=== PATIENT | male | born 1995 | race African-American/Black ===

== ENCOUNTER 2018-01-18 03:42 | Emergency (ER) | payer SELFPAY ==
[2018-01-18 03:44] VITALS: BP 154/78; PULSE 112; RESP 18; TEMP 36.8; O2SAT 97; BMI 28.7
--- NOTE | 2018-01-18 03:56 | ED.DCSUM_ITS ---
- ER Visit Summary Date of Service: 01/18/18 Chief Complaint: Bumps on right side of lip History of Present Illness: The patient is a 22 M who noted a sore area to the inner portion of his upper lip yesterday afternoon. The area is slightly enlarging in size. He denies dental pain. When questioned he does state that he tends to chew on his lip. Physical Examination: Vital signs reveal blood pressure 154/78, temperature 98.2 , heart rate 112, respiratory rate 18, pulse ox 97% on room air. Patient sitting upright in bed no acute distress. He is nontoxic appearing. Head neck examination reveals no obvious facial edema or erythema. Intraoral examination was a 2 cm long area of induration and tenderness just on the inner surface of the right upper lip. There is no dental tenderness. No gum edema. Heart is regular rate and rhythm without murmur. Lung sounds are clear. Abdomen is soft nontender. Test Results: [] Emergency Department Course and Treatment: I believe the patient has a indurated area from chewing on his lip. I am concerned he may be starting to get this area infected. He will be covered with clindamycin, first dose given here in the emergency room. Treatment Plan: [] Disposition: Discharge Impression: Skin infection right upper lip This note was generated with [employer] dictation software. It may contain incorrect words, spelling, and punctuation that were not noted in review of the chart prior to signing ED Disposition - Plan for ED Patient: Chief Complaint: Other, Pain/Inj Referrals: Anish Schmid MD [Primary Care Provider] -
--- NOTE | 2018-01-18 03:56 | ED.DEP ---
ED Disposition - Plan for ED Patient: Disposition: Home or Assisted Living Chief Complaint: Other, Pain/Inj Prescriptions: Clindamycin [Cleocin] 300 mg PO 4X/DAY #80 capsule Referrals: Anish Schmid MD [Primary Care Provider] - Additional Instructions: You have a localized area of skin irritation that is starting to become infected. You have been given antibiotics to treat this. You can also use over the counter lip balm to treat cold sores to help heal this area.
[2018-01-18] MEDS: Clindamycin HCl 150 MG Capsule 300 MG PO (04:15)
[2018-01-18 04:16] VITALS: RESP 18
== END 2018-01-18 04:17 | disposition home or self-care (01) ==
PROVIDERS: Emergency Provider Emergency Medicine; Family Provider Pediatrics; PCP Pediatrics
DX: L08.89 Other specified local infections of the skin and subcutaneous tissue (principal); Z72.0 Tobacco use
CPT/HCPCS: 99283

== ENCOUNTER 2018-12-03 03:23 | Emergency (ER) | payer SELFPAY ==
[2018-12-03 03:23] VITALS: BP 145/86; PULSE 61; RESP 16; TEMP 37; O2SAT 100; BMI 26.2
--- NOTE | 2018-12-03 03:26 | ED.DCSUM_ITS ---
- ER Visit Summary Date of Service: 12/03/18 Chief Complaint: Abdominal pain, nausea, vomiting, diarrhea History of Present Illness: The patient is a 23 M presents to the emergency department nausea, vomiting, diarrhea. Patient states symptoms began Saturday night. He states he had a sharp, stabbing pain in his midepigastric area. Since then, he had multiple episodes of emesis. He is also had loose watery diarrhea. He does not think he had fever. Patient is otherwise healthy. He has no history of abdominal surgery. He denies chest pain or dyspnea. He is tried Pepto-Bismol with little improvement. He is on no other daily medications. He denies any recent sick contacts. Physical Examination: Vital signs reviewed General: Well-nourished, well-developed Head: Normocephalic, atraumatic Eyes: Pupils equal and reactive, extraocular muscles intact Neck, supple, no lymphadenopathy Heart: Regular rate and rhythm Respiratory: No distress, clear bilaterally Abdomen: Soft, mildly tender in the midepigastric area without rebound or guarding, nondistended, no peritoneal signs Back: Nontender Extremities: Nontender, no edema, no cords Skin: Normal color no rash Neuro: Alert and oriented, no focal or lateralizing deficits Test Results: [] Emergency Department Course and Treatment: The patient presents with nausea, vomiting, diarrhea. He did have mild pain in his midepigastric area. There is no rebound or guarding. He had no blood in the emesis. IV was established. Patient was given fluids, Toradol, and Zofran. His nausea mildly improved but then returned. Screening labs are relatively unremarkable except for mild renal insufficiency. I do feel that this is likely prerenal given the patient's amount of vomiting. He was given a total 2 L of fluids. With IV Phenergan, his symptoms have resolved. He is now resting comfortably. At this time as he is hydrated and tolerating oral fluids I do feel that he is safe for outpatient therapy. He was counseled on concerning symptoms and reasons to return. Treatment Plan: [] Disposition: Discharge Impression: 1. Gastroenteritis This note was generated with [employer] dictation software. It may contain incorrect words, spelling, and punctuation that were not noted in review of the chart prior to signing ED Disposition - Plan for ED Patient: Instructions: ED Nausea Vomiting Prescriptions: Ondansetron [Zofran Odt] 4 mg PO Q8H PRN PRN #10 tab PRN Reason: Nausea Referrals: Anish Schmid MD [Primary Care Provider] -
[2018-12-03] MEDS: Ondansetron 4 MG/2 ML Vial IV (03:32)
[2018-12-03] MEDS: 0.9% Normal Saline 1,000 ML 1000 ML IV (03:32)
[2018-12-03] MEDS: Ketorolac 15 MG/ML Vial IV (03:32)
[2018-12-03 04:03] LABS: Absolute Lymphocyte Count 0.75 X10^3/ul (0.83-4.51); Absolute Neutrophil Count 5.2 X10^3/uL (2.0-7.7); Basophil# 0.01 X10^3/uL; Basophil% 0.2 % (0-1); Hematocrit 47.8 % (40-54); Hemoglobin 16.4 g/dl (13.0-16.5); Lymphocyte # 0.75 X10^3/ul (4.0); Lymphocyte % 11.7 % (19-41); Mean Corp Hgb Conc 34.3 g/gl (32-36); Mean Corpuscular Hgb 31.8 pg (27.0-32.0); Mean Corpuscular Volume 92.6 fL (80-94); Mean Platelet Vol. 10.8 fl (6.2-12.0); Monocyte# 0.45 X10^3/uL; Neutrophil # 5.18 X10^3/uL (2.7-7.7); Neutrophil % 80.9 % (47-70); Platelet Count 179 K/mm3 (150-450); RBC Distribution Width CV 12.1 % (11.6-14.6); RBC Distribution Width SD 40.7 fl (35.1-43.9); Red Blood Count 5.16 M/mm3 (4.6-6.2); White Blood Count 6.4 K/mm3 (4.4-11.0)
[2018-12-03 04:12] LABS: POSITIVE COUNT NO; POSITIVE DIFFERENTIAL NO; POSITIVE MORPHOLOGY NO
[2018-12-03 04:17] LABS: ALB/GLOB Ratio 1.3 RATIO (0.9-2.4); AST(SGOT) 16 U/L (15-37); Alanine Aminotransfer ALT/SGPT 19 U/L (16-61); Albumin, Serum 4.5 g/dL (3.2-5.0); Alkaline Phosphatase 49 U/L (45-117); Anion Gap 12 (5-15); BUN 13 mg/dL (7-18); BUN/Creat Ratio 8.8 RATIO (10-20); Calcium,Total 9.1 mg/dL (8.5-10.1); Chloride 105 mmol/L (98-107); Creatinine, Serum 1.47 mg/dL (0.70-1.30); EST Glomerular Filtration Rate 63 mL/min (>60); Est Glom Filt Rate - Afr Amer 77 mL/min (>60); Estimated Creatinine Clearance 81.39 ml/min; Globulin 3.4 g/dL (2.2-4.2); Glucose 112 mg/dL (74-106); Lipase 110 U/L (73-393); Potassium 3.2 mmol/L (3.5-5.1); Protein, Total 7.9 g/dL (6.4-8.2); Sodium Level 142 mmol/L (136-145)
[2018-12-03] MEDS: 0.9% Normal Saline 1,000 ML 999 ML IV (04:23)
[2018-12-03] MEDS: proMETHazine 25 MG/ML Syringe 12.5 MG IV (04:25)
[2018-12-03] MEDS: Ondansetron ODT 4 MG Tablet PO (05:16)
[2018-12-03 05:17] VITALS: BP 151/71; PULSE 74; RESP 16; O2SAT 100
== END 2018-12-03 05:21 | disposition home or self-care (01) ==
PROVIDERS: Emergency Provider Emergency Medicine; Family Provider Pediatrics; PCP Pediatrics
DX: K52.9 Noninfective gastroenteritis and colitis, unspecified (principal); N28.9 Disorder of kidney and ureter, unspecified
CPT/HCPCS: 80053; 83690; 85025; 96361; 96374; 96375; 99283; J7030; A4216; J2405

== ENCOUNTER 2018-12-08 05:36 | Emergency (ER) | payer SELFPAY ==
[2018-12-08 05:36] VITALS: BP 141/80; PULSE 65; RESP 15; TEMP 36.8; O2SAT 100; BMI 25.8
--- NOTE | 2018-12-08 05:48 | CT_ITS ---
STUDY: CT ABDOMEN AND PELVIS WITH CONTRAST REASON FOR EXAM: Male, 23 years old. Abdominal pain. Nausea, vomiting, and diarrhea for one week. History of asthma. RADIATION DOSAGE (If Supplied By Facility): CTDIvol = ( 10.51 ) mGy, DLP = ( 525.69 ) mGycm TECHNIQUE: Transaxial images were obtained from the dome of the diaphragm to the symphysis pubis without oral contrast. Isovue 300 100cc IV was administered. Sagittal and coronal images were reconstructed. Individualized dose optimization techniques were used for this CT. COMPARISON: None. FINDINGS: The visualized lung bases are unremarkable. The visualized portions of the heart are within normal limits. Normal liver. Normal gallbladder and extrahepatic biliary system. Normal spleen. Normal pancreas. Normal bilateral adrenal glands. Normal right kidney. Normal left kidney. Normal visualized stomach. Normal small intestine. Normal colon. The appendix is visualized on axial images 62-69 and it appears normal.. Normal abdominal aorta. Normal inferior vena cava. Normal retroperitoneum. Normal urinary bladder. Normal abdominal wall. Normal osseous structures. CT/Abdomen/Pelvis W IV Cont ONLY IMPRESSION: Normal enhanced CT of the abdomen and pelvis. Electronically Signed: Jordon Victor MD at 7:39 EST , Service support ,
[2018-12-08] MEDS: Morphine 4 MG/ML Syringe IV (05:55)
[2018-12-08] MEDS: 0.9% Normal Saline 1,000 ML 1000 ML IV (05:56)
[2018-12-08] MEDS: Ondansetron 4 MG/2 ML Vial IV (05:56)
[2018-12-08 06:21] LABS: Absolute Lymphocyte Count 1.22 X10^3/ul (0.83-4.51); Absolute Neutrophil Count 2.6 X10^3/uL (2.0-7.7); Basophil# 0.01 X10^3/uL; Basophil% 0.2 % (0-1); Eosinophil# 0.05 X10^3/uL; Eosinophils% 1.1 % (0-5); Hematocrit 45.6 % (40-54); Hemoglobin 15.7 g/dl (13.0-16.5); Lymphocyte # 1.22 X10^3/ul (4.0); Lymphocyte % 26.3 % (19-41); Mean Corp Hgb Conc 34.4 g/gl (32-36); Mean Corpuscular Hgb 31.6 pg (27.0-32.0); Mean Corpuscular Volume 91.8 fL (80-94); Monocyte# 0.76 X10^3/uL; Monocyte% 16.4 % (0-10); Neutrophil # 2.59 X10^3/uL (2.7-7.7); Platelet Count 153 K/mm3 (150-450); RBC Distribution Width CV 11.9 % (11.6-14.6); RBC Distribution Width SD 39.8 fl (35.1-43.9); Red Blood Count 4.97 M/mm3 (4.6-6.2); White Blood Count 4.6 K/mm3 (4.4-11.0)
[2018-12-08 06:22] LABS: POSITIVE COUNT NO; POSITIVE DIFFERENTIAL NO; POSITIVE MORPHOLOGY NO
[2018-12-08 06:39] LABS: ALB/GLOB Ratio 1.2 RATIO (0.9-2.4); AST(SGOT) 10 U/L (15-37); Alanine Aminotransfer ALT/SGPT 16 U/L (16-61); Albumin, Serum 4.1 g/dL (3.2-5.0); Alkaline Phosphatase 39 U/L (45-117); Anion Gap 11 (5-15); BUN 10 mg/dL (7-18); BUN/Creat Ratio 7.5 RATIO (10-20); Calcium,Total 8.8 mg/dL (8.5-10.1); Chloride 100 mmol/L (98-107); Creatinine, Serum 1.33 mg/dL (0.70-1.30); EST Glomerular Filtration Rate 71 mL/min (>60); Est Glom Filt Rate - Afr Amer 86 mL/min (>60); Estimated Creatinine Clearance 89.95 ml/min; Globulin 3.4 g/dL (2.2-4.2); Glucose 104 mg/dL (74-106); Lipase 318 U/L (73-393); Potassium 3.7 mmol/L (3.5-5.1); Protein, Total 7.5 g/dL (6.4-8.2); Sodium Level 139 mmol/L (136-145)
--- NOTE | 2018-12-08 06:44 | ED.VISSUMM ---
- ER Visit Summary Date of Service: 12/08/18 Chief Complaint: Nausea, vomiting, diarrhea, and abdominal pain History of Present Illness: The patient is a 23 M with nausea, vomiting, diarrhea, and abdominal pain. Symptoms have been ongoing for about a week. He was seen here previously. Please refer to the prior note. It was thought that he had gastroenteritis. His laboratory studies were unremarkable and he was discharged home. He presents for continued symptoms as well as increasing pain. The pain is in his epigastric region as well as his right abdomen. He never had anything like this prior to the past week. Denies any other associated symptoms like fever or urinary symptoms. Nothing seems to make it better or worse. No surgical history. Physical Examination: Afebrile and vital signs unremarkable. He is alert and oriented. No acute distress, but appears uncomfortable. Skin normal in color without jaundice or pallor noted. Mucous members are moist. Heart regular. Lungs clear. Abdomen is tender to palpation over the right hemiabdomen, more so in the right lower quadrant. No guarding or rebound. Test Results: CBC normal. Creatinine slightly improved at 1.33. Total bilirubin increased to 1.2. Lipase normal. CT abdomen pelvis pending. Emergency Department Course and Treatment: Patient presents with continued nausea, vomiting, diarrhea, and increasing abdominal pain. I do not believe this is gastroenteritis at this point. Patient was treated with fluids, morphine, and Zofran. Will reassess. I repeated his labs and they were unremarkable. CT is pending at the time of this dictation. I notified the patient that the CT was pending, and the oncoming doctor will check the results and treat accordingly. If his CT is negative, he will be discharged with a course of Pepcid and Zofran. He was advised to follow-up with primary care. Treatment Plan: Pending CT results Disposition: Pending CT results Impression: 1. Abdominal pain This note was generated with [employer] dictation software. It may contain incorrect words, spelling, and punctuation that were not noted in review of the chart prior to signing ED Disposition - Plan for ED Patient: Instructions: ED Abdominal Pain Unkn Cause Male Prescriptions: Ondansetron [Zofran Odt] 4 mg PO Q8H PRN PRN #10 tab PRN Reason: Nausea Famotidine [Pepcid] 20 mg PO BID #28 tab Referrals: Anish Schmid MD [Primary Care Provider] -
[2018-12-08 08:05] VITALS: BP 136/83; PULSE 56; RESP 18; O2SAT 99
== END 2018-12-08 08:06 | disposition home or self-care (01) ==
PROVIDERS: Emergency Medicine; Emergency Provider Emergency Medicine; Family Provider Pediatrics; PCP Pediatrics
DX: R10.9 Unspecified abdominal pain (principal); K52.9 Noninfective gastroenteritis and colitis, unspecified; J45.909 Unspecified asthma, uncomplicated; Z72.0 Tobacco use
CPT/HCPCS: 74177; 80053; 83690; 85025; 96361; 96374; 96375; 99283; J7030; Q9967; A4216; J2405

== ENCOUNTER 2019-02-19 04:40 | Emergency (ER) | payer SELFPAY ==
[2019-02-19 04:43] VITALS: BP 165/85; PULSE 75; RESP 16; TEMP 37.3; O2SAT 100; BMI 26.4
--- NOTE | 2019-02-19 04:50 | ED.DCSUM_ITS ---
- ER Visit Summary Date of Service: 02/19/19 Chief Complaint: Nausea, vomiting, abdominal pain History of Present Illness: The patient is a 24 M with mid abdominal pain for the past 3 days. Patient states he started nausea and vomiting the following day. He denies diarrhea. He has had chills but no fever. He was last able to eat yesterday. Patient denies any prior abdominal surgeries. Physical Examination: Vital signs significant for blood pressure of 165/85, otherwise unremarkable. Patient sitting upright in bed no acute distress. He is nontoxic appearing. Heart is regular rate and rhythm. Lung sounds are clear. Abdomen is soft with minimal periumbilical tenderness. No guarding or rebound. Hypoactive bowel sounds are present. Test Results: CBC was normal overall white count with slight left shift at 84% neutrophils. Chemistry studies significant for a creatinine 1.41 with normal BUN. In December his creatinine was 1.33. LFTs are significant for ALT of 201 and AST of 1183. Lipase is normal. Emergency Department Course and Treatment: Patient was given morphine, Zofran, and IV fluids. On repeat examination patient is sleeping comfortably. He easily awakens. Abdomen is soft with mild tenderness in the right upper quadrant. There is no guarding or rebound. Nausea is improved. Test results were discussed with him. He denies any new medications over the past several months. He has not been drinking alcohol. I did review a CT scan of the abdomen and pelvis that was performed in December and was unremarkable. Hepatitis panel is sent and patient will remain in the ER to undergo right upper quadrant ultrasound to further evaluate his liver. This will be signed out to oncoming physician for final disposition. Treatment Plan: [] Disposition: Pending imaging studies Impression: 1. Vomiting, improved 2. Abdominal pain 3. Elevated liver enzymes This note was generated with [employer] dictation software. It may contain incorrect words, spelling, and punctuation that were not noted in review of the chart prior to signing ED Disposition - Plan for ED Patient: Referrals: NOT,DEFINED [NON-STAFF] -
[2019-02-19] MEDS: Ondansetron 4 MG/2 ML Vial IV (04:53)
[2019-02-19] MEDS: 0.9% Normal Saline 1,000 ML 1000 ML IV (04:53)
[2019-02-19] MEDS: Morphine 4 MG/ML Syringe IV (04:53)
[2019-02-19 05:06] LABS: Absolute Neutrophil Count 7.6 X10^3/uL (2.0-7.7); Basophil# 0.01 X10^3/uL; Basophil% 0.1 % (0-1); Hematocrit 44.5 % (40-54); Hemoglobin 16.2 g/dl (13.0-16.5); Lymphocyte % 9.9 % (19-41); Mean Corp Hgb Conc 36.4 g/gl (32-36); Mean Corpuscular Hgb 32.3 pg (27.0-32.0); Mean Corpuscular Volume 88.6 fL (80-94); Mean Platelet Vol. 11.1 fl (6.2-12.0); Monocyte# 0.53 X10^3/uL; Monocyte% 5.8 % (0-10); Neutrophil # 7.62 X10^3/uL (2.7-7.7); Neutrophil % 84.1 % (47-70); POSITIVE COUNT NO; POSITIVE DIFFERENTIAL NO; POSITIVE MORPHOLOGY NO; Platelet Count 154 K/mm3 (150-450); RBC Distribution Width CV 11.8 % (11.6-14.6); RBC Distribution Width SD 37.5 fl (35.1-43.9); Red Blood Count 5.02 M/mm3 (4.6-6.2); White Blood Count 9.1 K/mm3 (4.4-11.0)
[2019-02-19 05:56] LABS: BUN 14 mg/dL (7-18); Creatinine, Serum 1.41 mg/dL (0.70-1.30); Estimated Creatinine Clearance 86.78 ml/min; Glucose 119 mg/dL (74-106)
[2019-02-19 05:57] LABS: AST(SGOT) 1183 U/L (15-37); Alanine Aminotransfer ALT/SGPT 201 U/L (16-61); Albumin, Serum 4.3 g/dL (3.2-5.0); Alkaline Phosphatase 48 U/L (45-117); Anion Gap 10 (5-15); BUN/Creat Ratio 9.9 RATIO (10-20); Bilirubin, Direct 0.19 mg/dL (0.00-0.30); Calcium,Total 9.1 mg/dL (8.5-10.1); Chloride 107 mmol/L (98-107); EST Glomerular Filtration Rate 66 mL/min (>60); Est Glom Filt Rate - Afr Amer 80 mL/min (>60); Globulin 3.9 g/dL (2.2-4.2); Lipase 102 U/L (73-393); Potassium 3.8 mmol/L (3.5-5.1); Protein, Total 8.2 g/dL (6.4-8.2); Sodium Level 140 mmol/L (136-145)
--- NOTE | 2019-02-19 05:58 | US_ITS ---
STUDY: ABDOMINAL ULTRASOUND - RIGHT UPPER QUADRANT REASON FOR VISIT: Male, 24 years old. Elevated LFTs. TECHNIQUE: Ultrasound evaluation of the right upper quadrant was performed with real-time and static marte-scale imaging. TECHNICAL QUALITY: Adequate. COMPARISON: None. FINDINGS: Liver: The liver measures 15 cm. There is normal echogenicity of the liver. The bile ducts are within normal limits. There is hepatic color flow. The direction of portal flow is hepatopetal. There is no demonstrated mass lesion. Gallbladder: Normal distended gallbladder. The gallbladder wall measures 2 mm. No documented sonographic Heaton's sign. There is no pericholecystic fluid. There are no gallstones. Common Bile Duct (C.B.D.): The common bile duct measures 3.5 mm. Pancreas: Normal size of the head, body and tail of the pancreas. There is normal echogenicity of the pancreas. There is no demonstrated pancreatic mass or cyst. Right Kidney: Normal size of the right kidney. The right kidney measures 11 cm. Normal renal cortex. The right cortex measures 1.2 cm. There is no demonstrated renal mass or cyst. There is no right hydronephrosis. US/Abdomen Limited IMPRESSION: No acute sonographic abnormality Undocumented sonographic Heaton's sign Electronically Signed: Bal Rebolledo DO at 8:12 EDT Tel , Service support ,
[2019-02-19] MEDS: 0.9% Normal Saline 1,000 ML 150 ML IV (06:28)
[2019-02-19] MEDS: Ketorolac 30 MG/ML Syringe IV (06:28)
[2019-02-19 06:31] VITALS: BP 154/93; PULSE 59; RESP 16; TEMP 37.2; O2SAT 100
[2019-02-19] MEDS: oxyCODONE 5 MG Tablet PO (08:13)
[2019-02-19 08:15] VITALS: BP 135/75; PULSE 67; RESP 16; O2SAT 100
--- NOTE | 2019-02-19 08:22 | NURSING ---
DR VENTURA PAGED
--- NOTE | 2019-02-19 08:23 | ED.DEP ---
ED Disposition - Plan for ED Patient: Disposition: Home or Assisted Living Instructions: ED Abdominal Pain Unkn Cause Prescriptions: Oxycodone [Oxyir] 5 mg PO Q4H PRN PRN #12 tab PRN Reason: Mod-Severe Pain (-07/16) Referrals: Malcolm Barbour MD [NON-STAFF] - 1 Week Kay Fisher [NON-STAFF] - 3-5 Days
[2019-02-19 09:07] VITALS: PULSE 81; RESP 17; O2SAT 99
[2019-02-20 08:10] LABS: HEPATITIS B SURFACE AG Negative (Negative); Hepatitis A IgM Antibody Negative (Negative); Hepatitis B Core AB IgM Negative (Negative)
[2019-02-20 13:11] LABS: Hep C Antibodies <0.1 s/co ratio (0.0-0.9)
== END 2019-02-19 09:08 | disposition home or self-care (01) ==
PROVIDERS: Emergency Provider Emergency Medicine
DX: R11.2 Nausea with vomiting, unspecified (principal); R10.9 Unspecified abdominal pain; R74.8 Abnormal levels of other serum enzymes; J45.909 Unspecified asthma, uncomplicated; Z72.0 Tobacco use; Z79.899 Other long term (current) drug therapy
CPT/HCPCS: 36415; 76705; 80048; 80074; 80076; 83690; 85025; 96361; 96374; 96375; 99284; J7030; A4216; J2405; J3490

== ENCOUNTER 2019-08-02 16:24 | Emergency (ER) | payer SELFPAY ==
[2019-08-02] VITALS (8 sets, daily range): BP systolic 144–149; BP diastolic 71–77; PULSE 62–73; RESP 17–18; TEMP 36.6; O2SAT 99–100; BMI 27.6
--- NOTE | 2019-08-02 16:40 | ED.DCSUM_ITS ---
- ER Visit Summary Date of Service: 08/02/19 Chief Complaint: Depressed and suicidal History of Present Illness: The patient is a 24 M history of depression. History of auditory hallucinations. Patient states for 3 to 4 years is been off his medications. Previously was on Prozac. He did tell him to kill himself. He has had one prior overdose attempts. But nothing recently. No prior hospitalizations. Currently he is not seeing a physician or a counseling center or psychiatrist. Physical Examination: Young male no acute distress vital signs are stable and afebrile. No signs of toxidrome no recent normal alcohol. Female friend is present with him in the room. HEENT exam unremarkable. Neck nontender. Lungs clear to auscultation bilaterally. Heart regular rate and rhythm no murmur. Abdomen soft and nontender. Patient is moving all 4 extremities. Neurovascular intact. There is no signs of trauma or edema. Back nontender. Neurologically is awake and alert with no focal motor deficits. Currently patient is calm and cooperative. Test Results: [] Emergency Department Course and Treatment: Patient undergo ED mental health evaluation and a crisis evaluation. Treatment Plan: [] Disposition: [] Impression: Acute on chronic depression with suicidal ideation This note was generated with [employer] dictation software. It may contain incorrect words, spelling, and punctuation that were not noted in review of the chart prior to signing ED Disposition - Plan for ED Patient: Referrals: Care Physician,No Primary [Primary Care Provider] -
[2019-08-02 17:16] LABS: Absolute Lymphocyte Count 1.55 X10^3/uL (0.83-4.51); Absolute Neutrophil Count 2.5 X10^3/uL (2.0-7.7); Basophil# 0.03 X10^3/uL; Basophil% 0.6 % (0-1); Eosinophil# 0.19 X10^3/uL; Hemoglobin 15.8 g/dL (13.0-16.5); Lymphocyte # 1.55 X10^3/ul (4.0); Lymphocyte % 32.4 % (19-41); Mean Corp Hgb Conc 33.6 g/dL (32-36); Mean Corpuscular Hgb 31.5 pg (27.0-32.0); Mean Corpuscular Volume 93.8 fL (80-94); Mean Platelet Vol. 10.6 fl (6.2-12.0); Monocyte# 0.53 X10^3/uL; Monocyte% 11.1 % (0-10); NRBC Flagged by Analyzer 0 % (0-5); Neutrophil # 2.48 X10^3/uL (2.7-7.7); Neutrophil % 51.7 % (47-70); Platelet Count 175 K/mm3 (150-450); RBC Distribution Width CV 11.2 % (11.6-14.6); RBC Distribution Width SD 38.6 fl (35.1-43.9); Red Blood Count 5.01 M/mm3 (4.6-6.2); White Blood Count 4.8 K/mm3 (4.4-11.0)
[2019-08-02 17:27] LABS: Anion Gap 2 (5-15); BUN 10 mg/dL (7-18); BUN/Creat Ratio 8.5 RATIO (10-20); Chloride 111 mmol/L (98-107); Creatinine, Serum 1.17 mg/dL (0.70-1.30); EST Glomerular Filtration Rate 82 mL/min (>60); Est Glom Filt Rate - Afr Amer 99 mL/min (>60); Estimated Creatinine Clearance 107.78 ml/min; Glucose 84 mg/dL (74-106); Potassium 3.9 mmol/L (3.5-5.1); Sodium Level 142 mmol/L (136-145)
[2019-08-02 17:34] LABS: Alcohol, Blood (Medical)-Serum < 3.0 mg/dL
[2019-08-02 17:57] LABS: Amphetamine Urine VISTA NEGATIVE (<1000 ng/mL); Barbiturate Urine VISTA NEGATIVE (< 200 ng/mL); Benzodiazepine Urine VISTA POSITIVE (< 200 ng/mL); Cocaine Urine VISTA NEGATIVE (< 300 ng/mL); Ecstacy Urine VISTA NEGATIVE (< 500 ng/mL); Methadone Urine VISTA NEGATIVE (< 300 ng/mL); PCP Urine VISTA NEGATIVE (< 25 ng/mL); THC Urine VISTA POSITIVE (< 50 ng/mL); Vista UDS pH Range 7
--- NOTE | 2019-08-02 21:32 | EKG12_ITS ---
Test Reason : [facility] [place] Blood Pressure : / mmHG Vent. Rate : 062 BPM Atrial Rate : 062 BPM P-R Int : 156 ms QRS Dur : 088 ms QT Int : 360 ms P-R-T Axes : 034 031 007 degrees QTc Int : 365 ms Normal sinus rhythm with sinus arrhythmia ST elevation, consider early repolarization Abnormal ECG Confirmed by ETHAN SUNG, CATHERINE ([id number]), sports editor LUKE GNUYỄN ([id number]) on 08/04/2019 10:58:34 AM Referred By: RACHEL Confirmed By:CATHERINE LONG MD
[2019-08-02 21:55] LABS: AST(SGOT) 19 U/L (15-37); Alanine Aminotransfer ALT/SGPT 27 U/L (16-61); Alkaline Phosphatase 44 U/L (45-117); Bilirubin, Direct 0.16 mg/dL (0.00-0.30); Globulin 3.5 g/dL (2.2-4.2); Protein, Total 7.5 g/dL (6.4-8.2)
[2019-08-02] MEDS: FLUoxetine 20 MG Capsule PO (22:30)
--- NOTE | 2019-08-02 23:21 | ED.RN ---
[facility], BED 11 [address], DR. POSADA, NURSE TO NURSE [phone] EXT. [phone]. [facility] WILL ARRANGE TRANSPORTATION IN THE MORNING AND CALL WITH DETAILS.
[2019-08-03] VITALS (10 sets, daily range): BP systolic 126–138; BP diastolic 60–70; PULSE 64–91; RESP 16–18; O2SAT 99–100
== END 2019-08-03 08:10 ==
LOC: ED 16:47
PROVIDERS: Emergency Provider Emergency Medicine
DX: F32.9 Major depressive disorder, single episode, unspecified (principal); R45.851 Suicidal ideations; Z72.0 Tobacco use; Z79.899 Other long term (current) drug therapy; Z91.5 Personal history of self-harm
CPT/HCPCS: 36415; 80048; 80076; 80307; 80320; 85025; 93005; 99284; G0480

== ENCOUNTER 2019-08-17 10:08 | Emergency (ER) | payer SELFPAY ==
[2019-08-02 16:25] VITALS: BMI 27.6
[2019-08-17 10:09] VITALS: BP 142/68; PULSE 87; RESP 16; TEMP 36.6; O2SAT 100; BMI 27.1
--- NOTE | 2019-08-17 10:20 | ED.VISSUMM ---
- ER Visit Summary Date of Service: 08/17/19 Chief Complaint: I'm having a hard time keeping an erection History of Present Illness: The patient is a 24 M who states he is having a hard time keeping an erection. This is been ongoing for a week. He started Celexa and Risperdal a week ago. He was admitted to a psychiatric facility when these medications were started. He states that the symptoms did start after the medication was started. He states that he is able to get an erection but is having a hard time maintaining it. He is following up with his psychiatrist on Saturday. Physical Examination: Vital signs reviewed. HEENT exam unremarkable. Heart is regular rate and rhythm without murmurs. Lungs are clear to auscultation. Abdomen is soft and nontender. Male exam is deferred. Extremities reveal no edema. Skin exam normal. Neurologic exam normal. Test Results: None performed Emergency Department Course and Treatment: His symptoms are likely a side effect of the Celexa. I informed him that he needs to discuss this with his psychiatrist on Saturday to discuss possible changes to his medications. I do not feel any testing is needed. He will follow-up this week Treatment Plan: [] Disposition: Discharge Impression: Impotence secondary to medications This note was generated with [employer] dictation software. It may contain incorrect words, spelling, and punctuation that were not noted in review of the chart prior to signing ED Disposition - Plan for ED Patient: Referrals: Care Physician,No Primary [Primary Care Provider] -
--- NOTE | 2019-08-17 10:23 | ED.DEP ---
ED Disposition - Plan for ED Patient: Disposition: Home or Assisted Living Instructions: Using Antidepressants Referrals: Care Physician,No Primary [Primary Care Provider] -
[2019-08-17 10:30] VITALS: RESP 16
--- NOTE | 2019-08-17 10:31 | ED.RN ---
REVIEWED D/C INSTRUCTIONS, FOLLOW UP CARE, AND S/S THAT WOULD WARRANT A RETURN TO THE ED WITH PT. PT VERBALIZED AN UNDERSTANDING AND DENIES FURTHER QUESTIONS FOR THIS RN. PT SKIN WARM AND DRY, RESP EVEN AND UNLABORED, PT A&O X 3, NO DISTRESS NOTED. PT AMBULATED OUT OF ED, GAIT STEADY.
== END 2019-08-17 10:32 | disposition home or self-care (01) ==
LOC: ED 10:25
PROVIDERS: Emergency Provider Emergency Medicine
DX: N52.2 Drug-induced erectile dysfunction (principal); T43.225A Adverse effect of selective serotonin reuptake inhibitors, initial encounter; Y92.9 Unspecified place or not applicable; F32.9 Major depressive disorder, single episode, unspecified; Z72.0 Tobacco use
CPT/HCPCS: 99282

== ENCOUNTER 2019-09-03 16:51 | Emergency (ER) | payer SELFPAY ==
[2019-09-03 16:53] VITALS: BP 135/74; PULSE 81; RESP 14; TEMP 36.6; O2SAT 100; BMI 27.1
--- NOTE | 2019-09-03 17:40 | ED.DCSUM_ITS ---
- ER Visit Summary Date of Service: 09/03/19 Chief Complaint: STD exposure History of Present Illness: The patient is a 24 M who presents after exposure to chlamydia 2 weeks ago. Patient states he noted some urethral discharge over the past 2 weeks. Patient states his sexual partner has been diagnosed with chlamydia. Patient admits to some dysuria. Patient describes a burning with urination. Patient denies any fevers or chills. Patient denies any nausea or vomiting. Patient denies any hematuria. Physical Examination: Vital signs are stable. Patient is afebrile. Patient is in no acute distress. Oral mucosa is pink and moist. Neck is supple. Trachea is midline. There is no JVD. Heart with regular rate and rhythm. Lungs are clear and equal bilaterally. Abdomen is soft. Bowel sounds are normal. There is no tenderness. Cranial nerves II through XII are intact. There are no focal motor or sensory deficits noted. Emergency Department Course and Treatment: Urine was sent for GC and Chlamydia testing. Patient was given Rocephin, Zithromax, and Flagyl here. Patient was instructed to follow-up with his primary care physician in 5 to 7 days for further evaluation. Patient understood and was agreeable with the plan. All questions were answered. Disposition: Discharge home Impression: Urethritis This note was generated with [employer] dictation software. It may contain incorrect words, spelling, and punctuation that were not noted in review of the chart prior to signing ED Disposition - Plan for ED Patient: Disposition: Home or Assisted Living Diagnosis: Urethritis Instructions: URETHRITIS, Male (GC vs. Chlam) Referrals: Care Physician,No Primary [Primary Care Provider] - Mark Cash MD [NON-STAFF] - 5-7 Days
[2019-09-03] MEDS: Ceftriaxone 500 MG Vial 250 MG IM (18:05)
[2019-09-03] MEDS: Azithromycin 250 MG Tablet 1000 MG PO (18:05)
[2019-09-03] MEDS: metroNIDAZOLE 500 MG Tablet 2000 MG PO (18:05)
[2019-09-03 18:12] VITALS: BP 108/77; PULSE 62; RESP 15; O2SAT 97
[2019-09-03 20:24] LABS: Neisserai gonorrhoeae by PCR Negative (Negative); Probe Check PASS
[2019-09-03 20:25] LABS: Chlamydia Trachomatis by PCR POSITIVE (Negative)
--- NOTE | 2019-09-03 20:47 | ED.RN ---
pt notified he was positive for chlamydia. pt verbalizes understanding with no further questions
== END 2019-09-03 18:14 | disposition home or self-care (01) ==
PROVIDERS: Emergency Provider Emergency Medicine
DX: N34.2 Other urethritis (principal); Z20.2 Contact with and (suspected) exposure to infections with a predominantly sexual mode of transmission; F32.9 Major depressive disorder, single episode, unspecified; Z72.0 Tobacco use; Z79.899 Other long term (current) drug therapy
CPT/HCPCS: 87491; 87591; 96372; 99283